=== PATIENT | female | born 1975 | race Hispanic/Latino ===

== ENCOUNTER → 2018-12-02 | Outpatient (CLI) | payer BC ==
[~2018-12-02] MED LIST: ADDERALL 30 MG30 MG PO; AMPHETAMINE SAL10 MG; DYRENIUM50 MG PO; LYRICA75 MG PO; SYNTHROID25 MCG PO
--- NOTE | 2018-12-03 11:11 | Diagnostic Imaging Report ---
#[id number] - MGDXBIL #BILATERAL DIGITAL DIAGNOSTIC MAMMOGRAM WITH CAD: 12/02/2018 Comparison is made to exams dated: 02/17/2017 mammogram, 03/19/2014 mammogram, 02/24/2015 mammogram, 02/17/2017 ultrasound and 03/19/2014 ultrasound - [facility]. Current study contains 8 films. The tissue of both breasts is heterogeneously dense. This may lower the sensitivity of mammography. Current study was also evaluated with a Computer Aided Detection (CAD) system. Benign appearing microcalcifications, left breast. There also is a biopsy clip in the left breast. Bilateral retropectoral breast implants are intact. No significant masses, calcifications, or other findings are seen in either breast. IMPRESSION: BENIGN See the report for ultrasound performed the same day for additional details. There is no mammographic evidence of malignancy. A 1 year screening mammogram is recommended. The patient will be notified by letter of the results. CARTER BLACKBURN M.D. ct/penrad:12/02/2018 14:00:51 Machine Erector: Fide GUSTAFSON(Harshad)(M), [facility] letter sent: Normal Exam Mammogram BI-RADS: 2 Benign
--- NOTE | 2018-12-03 11:11 | Diagnostic Imaging Report ---
#[id number] - USBRELIMLT ULTRASOUND OF THE LEFT BREAST : 12/02/2018 Comparison is made to exams dated: 12/02/2018 mammogram - [facility], 02/17/2017 mammogram, 02/17/2017 ultrasound and 03/19/2014 ultrasound - [facility]. Real-time ultrasound was performed on the left breast. There are no solid or cystic masses identified. Benign left axillary nodes are present. IMPRESSION: BENIGN There is no sonographic evidence of malignancy. A 1 year screening mammogram is recommended. CARTER BLACKBURN M.D. ct/penrad:12/02/2018 14:01:44 Fsr: [facility]ALON [facility], [facility] letter sent: Normal Exam Ultrasound BI-RADS: 2 Benign
== END ==
LOC: MAMMO 10:49
PROVIDERS: ATTEND Specialist
DX: R92.8 Other abnormal and inconclusive findings on diagnostic imaging of breast (principal); N60.12 Diffuse cystic mastopathy of left breast
CPT/HCPCS: 77066